=== PATIENT | male | born 1965 | race African-American/Black ===

== ENCOUNTER 2020-03-26 09:53 | Emergency (ER) | payer BC ==
--- NOTE | 2020-03-26 10:33 | RAD ---
RADIOGRAPH LEFT KNEE 4VIEWS: DATE: 03/26/2020 HISTORY: 55-year-old male with acute, traumatic left knee pain FINDINGS: There is no evidence of fracture or dislocation. There is no evidence of periostitis, permeative lesi on, osteolytic lesion, or osteoblastic lesion. The joint spaces are maintained without erosions or significant osteophytes. No joint effusion is identified. There is focal lucency in the soft tissues anterior to the patella. No radiopaque foreign body identified. IMPRESSION: 1. No osseous abnormality. 2. Prepatellar superficial Soft tissue laceration
[2020-03-26] MEDS ORDERED: CEFAZOLIN 1 GM VIAL ONE (10:46)
[2020-03-26] MEDS ORDERED: Adacel (T-DAP) 0.5 ML SYRINGE ONE (10:46)
[2020-03-26] MEDS ORDERED: Lidocaine 1% w/Epinephrine 1:100K 20 ML VIAL ONE (11:21)
== END 2020-03-26 13:05 | disposition home or self-care (01) ==
LOC: ERS 09:53
DX: S71.112A Laceration without foreign body, left thigh, initial encounter (principal); Z23 Encounter for immunization; W29.3XXA Contact with powered garden and outdoor hand tools and machinery, initial encounter
CPT/HCPCS: 12032; 90471; 90715; 96365; J0690

== ENCOUNTER 2024-03-19 15:50 | Emergency (ER) | payer BC, OTHER ==
[2024-03-19] MEDS ORDERED: Proparacaine 0.5% Opth 15 ML BOT ONE (18:11)
[2024-03-19] MEDS ORDERED: Fluorescein Opthalmic Strip ONE (18:12)
== END 2024-03-19 20:15 | disposition home or self-care (01) ==
LOC: ERS 15:50
DX: S01.111A Laceration without foreign body of right eyelid and periocular area, initial encounter (principal); Z55.6 Problems related to health literacy; W26.8XXA Contact with other sharp object(s), not elsewhere classified, initial encounter; Y99.0 Civilian activity done for income or pay
CPT/HCPCS: 12011; 70486